=== PATIENT | female | born 1995 | race Caucasian/White ===

== ENCOUNTER 2018-01-11 05:42 | Emergency (ER) | payer OTHER ==
[2018-01-11] MEDS ORDERED: ALBUTEROL 2.5 MG/3 ML NEB SOL ONE ×2 (06:12→08:32)
[2018-01-11 07:24] LABS: Urine Blood TRACE (NEG); Urine Glucose NEGATIVE (NEG); Urine Protein NEGATIVE (NEG)
--- NOTE | 2018-01-11 08:20 | RAD REPORT ---
EXAM DESCRIPTION: Irina Winn (2 Views)01/11/2018 6:29 am CLINICAL HISTORY: Cough COMPARISON: 2016 FINDINGS: The lungs appear clear of acute infiltrate. The heart is normal size IMPRESSION: No acute abnormalities displayed
[2018-01-11] MEDS ORDERED: predniSONE 20 MG TAB ONE (08:32)
[2018-01-11] MEDS ORDERED: IPRATROPIUM BROM 0.5MG/2.5ML ONE (08:32)
--- NOTE | 2018-01-11 09:24 | EDPHYS ---
Physician Documentation [facility] Name: Erika Urbano Age: 22 yrs Sex: Female : 1995 Arrival Date: 01/11/2018 Time: 05:44 Bed 13 Private MD: ED Physician Justin Aguirre HPI: 01/11 06:30 This 22 yrs old Female presents to ER via Ambulatory with complaints of Cough pm1 and Shortness Of Breath. 06:31 The patient or guardian reports cough, with productive sputum, that is yellow. Onset: pm1 The symptoms/episode began/occurred 4 day(s) ago. Severity of symptoms: in the emergency department the symptoms are actually worse. Modifying factors: The symptoms are alleviated by inhaler, the symptoms are aggravated by nothing. Historical: - Allergies: 05:57 CEPHALOSPORINS; tl2 05:57 Clarithromycin; tl2 05:57 Lodine; tl2 05:57 Neosporin ([id number]); tl2 05:57 PENICILLINS; tl2 05:57 Sulfa (Sulfonamide Antibiotics); tl2 05:57 Clindamycin; tl2 - Home Meds: 05:57 Lamictal 150 mg Oral tab 1 tab once daily [Active]; tl2 - PMHx: 05:57 Asthma; Kidney stones; Ovarian cyst; tl2 - Immunization history:: Adult Immunizations up to date. - Social history:: Smoking status: Patient/guardian denies using tobacco. ROS: 08:17 Constitutional: Negative for fever, chills, and weight loss, Eyes: Negative for injury, pm1 pain, redness, and discharge, ENT: Negative for injury, pain, and discharge, Neck: Negative for injury, pain, and swelling, Cardiovascular: Negative for chest pain, palpitations, and edema. 08:17 Abdomen/GI: Negative for abdominal pain, nausea, vomiting, diarrhea, and constipation, Back: Negative for injury and pain, : Negative for injury, bleeding, discharge, and swelling, MS/Extremity: Negative for injury and deformity, Skin: Negative for injury, rash, and discoloration, Neuro: Negative for headache, weakness, numbness, tingling, and seizure. 08:17 Respiratory: Positive for cough, shortness of breath. Exam: 08:17 Constitutional: This is a well developed, well nourished patient who is awake, alert, pm1 and in no acute distress. Head/Face: Normocephalic, atraumatic. Chest/axilla: Normal chest wall appearance and motion. Nontender with no deformity. No lesions are appreciated. Cardiovascular: Regular rate and rhythm with a normal S1 and S2. No gallops, murmurs, or rubs. Normal PMI, no JVD. No pulse deficits. Abdomen/GI: Soft, non-tender, with normal bowel sounds. No distension or tympany. No guarding or rebound. No evidence of tenderness throughout. Back: No spinal tenderness. No costovertebral tenderness. Full range of motion. Skin: Warm, dry with normal turgor. Normal color with no rashes, no lesions, and no evidence of cellulitis. MS/ Extremity: Pulses equal, no cyanosis. Neurovascular intact. Full, normal range of motion. 08:17 Respiratory: the patient does not display signs of respiratory distress, Respirations: normal, Breath sounds: rhonchi, are heard diffusely. Vital Signs: 05:57 BP 116 / 81; Pulse 68; Resp 30; Temp 97.4(O); Pulse Ox 99% on R/A; Weight 74.84 kg; tl2 Height 5 ft. 4 in. (162.56 cm); Pain 0/10; 07:04 BP 107 / 75; Pulse 62; Resp 18; Pulse Ox 100% on R/A; tl2 07:57 BP 108 / 76; Pulse 63; Resp 18; Temp 97.5(TE); Pulse Ox 99% on R/A; ph 05:57 Body Mass Index 28.32 (74.84 kg, 162.56 cm) tl2 MDM: 06:09 Patient medically screened. pm1 08:18 Data reviewed: vital signs. Data interpreted: Pulse oximetry: on room air is 99 %. pm1 Interpretation: normal. 09:22 Counseling: I had a detailed discussion with the patient and/or guardian regarding: the pm1 historical points, exam findings, and any diagnostic results supporting the discharge/admit diagnosis, radiology results, the need for outpatient follow up, to return to the emergency department if symptoms worsen or persist or if there are any questions or concerns that arise at home. 01/11 07:19 Order name: Urine Dipstick--Ancillary (enter results); Complete Time: 07:28 eb 01/11 07:19 Order name: Urine --Ancillary (enter results); Complete Time: 07:28 eb 01/11 06:09 Order name: Chest Pa And Lat (2 Views) XRAY; Complete Time: 08:21 pm1 01/11 06:09 Order name: Urine Dipstick-Ancillary (obtain specimen); Complete Time: 07:07 pm1 01/11 06:09 Order name: Urine Test (obtain specimen); Complete Time: 07:07 pm1 Administered Medications: 06:16 Drug: Albuterol 2.5 mg Route: Inhalation; tl2 08:45 Drug: predniSONE 60 mg Route: PO; ph 08:45 Drug: Albuterol 5 mg Route: Inhalation; ph 08:45 Drug: AtroVENT Aerosol 0.5 mg Route: Inhalation; ph Disposition: 19:26 Co-signature as Attending Physician, Justin Aguirre MD. Disposition: 01/11/18 09:23 Discharged to Home. Impression: Bronchitis, not specified as acute or chronic. - Condition is Stable. - Discharge Instructions: Acute Bronchitis, How to Use an Inhaler. - Prescriptions for Prednisone 20 mg Oral Tablet - take 3 tablet by ORAL route once daily for 5 days; 15 tablet. Guaifenesin AC 10- 100 mg/5 mL Oral Liquid - take 10 milliliter by ORAL route every 4 hours As needed; 240 milliliter. - Work release form, Medication Reconciliation Form, Thank You Letter, Antibiotic Education, Prescription Opioid Use form. - Follow up: Emergency Department; When: As needed; Reason: Worsening of condition. Follow up: Private Physician; When: 2 - 3 days; Reason: Recheck today's complaints, Continuance of care, Re-evaluation by your physician. - Problem is new. - Symptoms have improved. Signatures: Dispatcher [employer] Madyson Alejandre RN RN ph Sung Flores, [employer]AK[employer] CLINICAL NURSING DIRECTOR pm1 Yuko Rivera RN RN janak2 Justin Aguirre MD MD Corrections: (The following items were deleted from the chart) 09:53 09:23 01/11/2018 09:23 Discharged to Home. Impression: Bronchitis, not specified as ph acute or chronic. Condition is Stable. Forms are Medication Reconciliation Form, Thank You Letter, Antibiotic Education, Prescription Opioid Use. Follow up: Emergency Department; When: As needed; Reason: Worsening of condition. Follow up: Private Physician; When: 2 - 3 days; Reason: Recheck today's complaints, Continuance of care, Re-evaluation by your physician. Problem is new. Symptoms have improved. pm1
--- NOTE | 2018-01-11 09:24 | ER ---
Nurse's Notes [facility] Name: Erika Urbano Age: 22 yrs Sex: Female : 1995 Arrival Date: 01/11/2018 Time: 05:44 Bed 13 Private MD: Diagnosis: Bronchitis, not specified as acute or chronic Presentation: 01/11 05:54 Presenting complaint: Patient states: I've had a cough for 4 days and shortness of tl2 breath for 2 days. I had a fever yesterday. Transition of care: patient was not received from another setting of care. Onset of symptoms was January 07, 2018. Initial Sepsis Screen: Does the patient meet any 2 criteria? No. Patient's initial sepsis screen is negative. Does the patient have a suspected source of infection? No. Patient's initial sepsis screen is negative. Care prior to arrival: None. 05:54 Method Of Arrival: Ambulatory tl2 05:54 Acuity: KAYE 3 tl2 Triage Assessment: 05:57 General: Appears in no apparent distress. uncomfortable, Behavior is calm, cooperative, tl2 appropriate for age. Pain: Denies pain. Neuro: Level of Consciousness is awake, alert, obeys commands, Oriented to person, place, time, situation. Cardiovascular: Chest pain chest pain when coughing. Respiratory: Reports shortness of breath cough that is Airway is patent Respiratory effort is even, unlabored, Respiratory pattern is tachypnea Breath sounds with rhonchi bilaterally. GI: No signs and/or symptoms were reported involving the gastrointestinal system. : No signs and/or symptoms were reported regarding the genitourinary system. Derm: Skin is pink, warm \T\ dry. Historical: - Allergies: 05:57 CEPHALOSPORINS; tl2 05:57 Clarithromycin; tl2 05:57 Lodine; tl2 05:57 Neosporin ([id number]); tl2 05:57 PENICILLINS; tl2 05:57 Sulfa (Sulfonamide Antibiotics); tl2 05:57 Clindamycin; tl2 - Home Meds: 05:57 Lamictal 150 mg Oral tab 1 tab once daily [Active]; tl2 - PMHx: 05:57 Asthma; Kidney stones; Ovarian cyst; tl2 - Immunization history:: Adult Immunizations up to date. - Social history:: Smoking status: Patient/guardian denies using tobacco. Screenin:01 Abuse screen: Denies threats or abuse. Nutritional screening: No deficits noted. tl2 Tuberculosis screening: No symptoms or risk factors identified. Fall Risk None identified. Assessment: 06:01 General: see triage assessment. tl2 06:16 Reassessment: Pt's RR decreased to 22 after resting. tl2 07:04 Reassessment: Patient appears in no apparent distress at this time. Patient and/or tl2 family updated on plan of care and expected duration. Pain level reassessed. Patient is alert, oriented x 3, equal unlabored respirations, skin warm/dry/pink. Patient states feeling better. 07:56 Reassessment: Patient appears in no apparent distress at this time. Patient and/or ph family updated on plan of care and expected duration. Pain level reassessed. Patient is alert, oriented x 3, equal unlabored respirations, skin warm/dry/pink. Pt resting quietly, awaiting CXR results, family at bedside. 09:02 Reassessment: Patient appears in no apparent distress at this time. Patient and/or ph family updated on plan of care and expected duration. Pain level reassessed. Patient is alert, oriented x 3, equal unlabored respirations, skin warm/dry/pink. Pt resting quietly, awaiting discharge, family at bedside. Vital Signs: 05:57 BP 116 / 81; Pulse 68; Resp 30; Temp 97.4(O); Pulse Ox 99% on R/A; Weight 74.84 kg; tl2 Height 5 ft. 4 in. (162.56 cm); Pain 0/10; 07:04 BP 107 / 75; Pulse 62; Resp 18; Pulse Ox 100% on R/A; tl2 07:57 BP 108 / 76; Pulse 63; Resp 18; Temp 97.5(TE); Pulse Ox 99% on R/A; ph 05:57 Body Mass Index 28.32 (74.84 kg, 162.56 cm) tl2 ED Course: 05:44 Patient arrived in ED. ds1 05:53 Yuko Rivera, NADYA is Primary Nurse. tl2 05:55 Triage completed. tl2 05:57 Arm band placed on right wrist. tl2 06:01 [facility] pm1 06:01 Justin Aguirre MD is Attending Physician. pm1 06:01 Patient has correct armband on for positive identification. Bed in low position. Call tl2 light in reach. Side rails up X 1. Adult w/ patient. 06:27 Patient moved to radiology via wheelchair. kw 06:27 X-ray completed. Patient tolerated procedure well. kw 06:27 Patient moved back from radiology. kw 06:28 Chest Pa And Lat (2 Views) XRAY In Process Unspecified. EDMS 09:05 No provider procedures requiring assistance completed. Patient did not have IV access ph during this emergency room visit. Administered Medications: 06:16 Drug: Albuterol 2.5 mg Route: Inhalation; tl2 08:45 Drug: predniSONE 60 mg Route: PO; ph 08:45 Drug: Albuterol 5 mg Route: Inhalation; ph 08:45 Drug: AtroVENT Aerosol 0.5 mg Route: Inhalation; ph Outcome: 09:23 Discharge ordered by . pm1 09:53 Patient left the ED. ph Signatures: Dispatcher [employer] EDDE Brianne Lund ds1 Carolina Coe Patricia, RN RN ph Sung Flores, [employer]HW[employer]ING [employer]ITLES pm1 Yuko Rivera, NADYA RN tl2
[2018-01-11 10:00] VITALS: BP 108/76; TEMP 97.5; O2SAT 99
== END 2018-01-11 09:53 | disposition home or self-care (01) ==
LOC: ER 05:42
DX: J20.9 Acute bronchitis, unspecified (principal)
CPT/HCPCS: 71046; 81003; 81025; 99284; J7512

== ENCOUNTER 2018-09-13 18:33 | Emergency (ER) | payer OTHER, SELFPAY ==
[2018-09-13 19:58] LABS: Absolute Monocytes 0.7 K/uL (0.1-1.3); Absolute Neutrophil 6.6 K/uL (1.8-8.0); Basophils % 0.6 % (0-1.3); Eosinophils % 0.5 % (0-4.4); Hematocrit 43.3 % (36.0-45.0); Lymphocytes % 20.9 % (15.3-44.8); MPV 7.4 fL (7.6-11.3); Monocytes % 7.9 % (3.3-12.3); RBC Red Blood Cell Count 4.74 M/uL (3.86-4.86)
[2018-09-13 20:02] LABS: Protime INR 1.01
[2018-09-13] MEDS ORDERED: ONDANSETRON 4 MG/2 ML VIAL ONE (20:14)
[2018-09-13] MEDS ORDERED: NA CHLORIDE 0.9% 1,000 ML ONE (20:14)
[2018-09-13] MEDS ORDERED: KETOROLAC 30 MG/ML INJ ONE (20:23)
--- NOTE | 2018-09-13 20:23 | RAD REPORT ---
EXAM DESCRIPTION: RAD - Chest Single View - 09/13/2018 8:14 pm CLINICAL HISTORY: CHEST PAIN Chest pain. COMPARISON: Chest Pa And Lat (2 Views) dated 01/11/2018; Chest Pa And Lat (2 Views) dated 03/22/2016 FINDINGS: Portable technique limits examination quality. The lungs are grossly clear. The heart is normal in size. No displaced fractures. IMPRESSION: No acute intrathoracic process suspected.
[2018-09-13 20:29] LABS: ALT/SGPT 21 U/L (12-78); AST/SGOT 16 U/L (15-37); Albumin 3.9 g/dL (3.4-5.0); Alkaline Phosphatase 80 U/L (45-117); BUN Blood Urea Nitrogen 11 mg/dL (7-18); Bicarbonate 27 mmol/L (21-32); Bilirubin Direct 0.1 mg/dL (0-0.2); Bilirubin Total 0.3 mg/dL (0.2-1.0); Glucose Level 89 mg/dL (74-106); Magnesium 2.1 mg/dL (1.8-2.4); NT PRO-BNP 23 pg/mL (<125); Potassium 3.9 mmol/L (3.5-5.1); Protein, Total 7.4 g/dL (6.4-8.2); Sodium Level 142 mmol/L (136-145); Troponin (Emerg Dept Use Only) < 0.02 ng/mL (0.0-0.045)
[2018-09-13 20:47] LABS: Barbiturates NEGATIVE (NEGATIVE); Benzodiazepines NEGATIVE (NEGATIVE); Cocaine NEGATIVE (NEGATIVE); METHAMPHETAM NEGATIVE (NEGATIVE); Methadone NEGATIVE (NEGATIVE); Opiates NEGATIVE (NEGATIVE); Phencyclidine NEGATIVE (NEGATIVE); THC Cannibis POSITIVE (NEGATIVE)
[2018-09-13 21:12] LABS: Urine Bacteria <20 /HPF (<20); Urine Culture Reflex Order REFLEXED; Urine RBC <5 /HPF (NONE SEEN)
[2018-09-13 21:13] LABS: Urine Blood NEGATIVE (NEG); Urine Glucose NEGATIVE (NEG); Urine Protein NEGATIVE (NEG); Urine Specific Gravity 1.015 (1.005-1.030)
--- NOTE | 2018-09-13 21:18 | ER ---
Nurse's Notes [facility] Name: Erika Urbano Age: 23 yrs Sex: Female : 1995 Arrival Date: 09/13/2018 Time: 18:35 Bed 7 Private MD: out of town, doctor Diagnosis: Chest pain Presentation: 09/13 18:38 Presenting complaint: Patient states: i have chest pain, it started an hour ago, heavy hj and squeezing pain; reports SOB; reports nausea; pain is 7/10;. Transition of care: patient was not received from another setting of care. Onset of symptoms was September 13, 2018. Risk Assessment: Do you want to hurt yourself or someone else? Patient reports no desire to harm self or others. Initial Sepsis Screen: Does the patient meet any 2 criteria? No. Patient's initial sepsis screen is negative. Does the patient have a suspected source of infection? No. Patient's initial sepsis screen is negative. Care prior to arrival: None. 18:38 Method Of Arrival: Ambulatory 18:38 Acuity: KAYE 3 hj Triage Assessment: 18:41 General: Appears in no apparent distress. uncomfortable, Behavior is calm, cooperative, hj appropriate for age. Pain: Complains of pain in chest Pain currently is 7 out of 10 on a pain scale. Cardiovascular: Capillary refill < 3 seconds Patient's skin is warm and dry. SITE AUDITOR: 18:41 LMP N/A - control method Historical: - Allergies: 18:41 CEPHALOSPORINS; hj 18:41 Clarithromycin; hj 18:41 Clindamycin; hj 18:41 Lodine; hj 18:41 Neosporin ([id number]); hj 18:41 PENICILLINS; hj 18:41 Sulfa (Sulfonamide Antibiotics); hj - Home Meds: 18:41 None [Active]; hj - PMHx: 18:41 Asthma; Kidney stones; Ovarian cyst; hj - PSHx: 18:41 Carpal Tunnel Repair; Knee surgery; hj - Immunization history:: Adult Immunizations up to date. - Social history:: Smoking status: Patient/guardian denies using tobacco, Patient/guardian denies using alcohol. - Ebola Screening: : Patient negative for fever greater than or equal to 101.5 degrees Fahrenheit, and additional compatible Ebola Virus Disease symptoms Patient denies exposure to infectious person Patient denies travel to an Ebola-affected area in the 21 days before illness onset. Screenin:42 Abuse screen: Denies threats or abuse. Denies injuries from another. Nutritional hj screening: No deficits noted. Tuberculosis screening: No symptoms or risk factors identified. Fall Risk None identified. Assessment: 18:42 Pain: Pain does not radiate. Pain began 1 hour ago. 18:45 General: Appears in no apparent distress. Behavior is calm, cooperative, appropriate tl1 for age. Pain: Complains of pain in chest Pain currently is 6 out of 10 on a pain scale. Quality of pain is described as squeezing. Neuro: Level of Consciousness is awake, alert, obeys commands, Oriented to person, place, time, situation. Cardiovascular: Reports chest pain, Capillary refill < 3 seconds JVD is absent Patient's skin is warm and dry. Rhythm is sinus rhythm. Respiratory: Reports cough that is since approx 2 months Airway is patent Trachea midline Respiratory effort is even, unlabored, Breath sounds are clear bilaterally. GI: Abdomen is non-distended, Bowel sounds present X 4 quads. Abd is soft and non tender X 4 quads. Reports nausea. : No signs and/or symptoms were reported regarding the genitourinary system. EENT: No signs and/or symptoms were reported regarding the EENT system. 21:37 Reassessment: Patient and/or family updated on plan of care and expected duration. Pain tl1 level reassessed. Patient is alert, oriented x 3, equal unlabored respirations, skin warm/dry/pink. Patient states feeling better. Vital Signs: 18:41 BP 121 / 80; Pulse 100; Resp 18; Temp 98.4(O); Pulse Ox 99% on R/A; Weight 74.84 kg; Height 5 ft. 4 in. (162.56 cm); Pain 7/10; 19:46 BP 112 / 81; Pulse 72; Resp 14; Pulse Ox 99% on R/A; mt 20:20 BP 103 / 64; Pulse 65; Resp 17; Pulse Ox 98% ; tl1 20:51 BP 94 / 62; Pulse 59; Resp 20; Pulse Ox 97% on R/A; Pain 0/10; tl1 18:41 Body Mass Index 28.32 (74.84 kg, 162.56 cm) ED Course: 18:35 Patient arrived in ED. mr 18:37 out of town, doctor is Private Physician. mr 18:40 Triage completed. hj 18:42 Arm band placed on right wrist. hj 18:42 Patient has correct armband on for positive identification. Placed in gown. Bed in low hj position. Call light in reach. Side rails up X 1. Adult w/ patient. environmental monitoring specialist on. Pulse ox on. NIBP on. 18:42 Patient maintains SpO2 saturation greater than 95% on room air. hj 19:41 Casey Reynolds MD is Attending Physician. pkl 19:50 Inserted saline lock: 20 gauge in right antecubital area, using aseptic technique. mt Blood collected. by NADYA Garza. 20:09 Kayla Beltran RN is Primary Nurse. tl1 20:13 XRAY Chest (1 view) In Process Unspecified. EDMS 21:37 No provider procedures requiring assistance completed. IV discontinued, intact, tl1 bleeding controlled, No redness/swelling at site. Pressure dressing applied. Administered Medications: 20:10 Drug: NS 0.9% 1000 ml Route: IV; Rate: 100 ml/hr; Site: right antecubital; tl1 21:38 Follow up: IV Status: Completed infusion tl1 20:10 Drug: Zofran 4 mg Route: IVP; Infused Over: 2 mins; Site: right antecubital; tl1 21:38 Follow up: Response: No adverse reaction; Marked relief of symptoms; Nausea is decreasedtl1 20:19 Drug: TORadol 30 mg Route: IVP; Infused Over: 2 mins; Site: right antecubital; tl1 21:38 Follow up: Response: No adverse reaction; Marked relief of symptoms; Pain is decreased tl1 Outcome: 21:18 Discharge ordered by . pkl 21:37 Discharged to home ambulatory, with family. tl1 21:37 Condition: good 21:37 Discharge instructions given to patient, family, Instructed on discharge instructions, follow up and referral plans. medication usage, Demonstrated understanding of instructions, follow-up care, medications, Prescriptions given X 2. 21:39 Patient left the ED. tl1 Signatures: Dispatcher [employer] EDPR Casey Reynolds MD MD pkl Rivera, Mary mr Kayla Beltran RN RN tl1 Adán Smith RN RN hj Thompson, Moriah mt Corrections: (The following items were deleted from the chart) 18:44 18:41 74.84 kg; Height 5 ft. 4 in.; BMI: 28.3; Pain 03/19; serjio bassett
--- NOTE | 2018-09-13 21:19 | EDPHYS ---
Physician Documentation [facility] Name: Erika Urbano Age: 23 yrs Sex: Female : 1995 Arrival Date: 09/13/2018 Time: 18:35 Bed 7 Private MD: out of town, doctor ED Physician Casey Reynolds HPI: 09/13 20:00 This 23 yrs old Female presents to ER via Ambulatory with complaints of Chest pkl Pain. 20:00 The patient or guardian reports chest pain that is located primarily in the substernal pkl area. The pain radiates to the left arm. Associated signs and symptoms: Pertinent positives: nausea. The chest pain is described as squeezing. The patient has not experienced similar symptoms in the past. FRONT DESK LEAD: 18:41 LMP N/A - control method hj Historical: - Allergies: 18:41 CEPHALOSPORINS; hj 18:41 Clarithromycin; hj 18:41 Clindamycin; hj 18:41 Lodine; hj 18:41 Neosporin ([id number]); hj 18:41 PENICILLINS; hj 18:41 Sulfa (Sulfonamide Antibiotics); hj - Home Meds: 18:41 None [Active]; hj - PMHx: 18:41 Asthma; Kidney stones; Ovarian cyst; hj - PSHx: 18:41 Carpal Tunnel Repair; Knee surgery; hj - Immunization history:: Adult Immunizations up to date. - Social history:: Smoking status: Patient/guardian denies using tobacco, Patient/guardian denies using alcohol. - Ebola Screening: : Patient negative for fever greater than or equal to 101.5 degrees Fahrenheit, and additional compatible Ebola Virus Disease symptoms Patient denies exposure to infectious person Patient denies travel to an Ebola-affected area in the 21 days before illness onset. ROS: 20:00 Eyes: Negative for injury, pain, redness, and discharge, ENT: Negative for injury, pkl pain, and discharge, Neck: Negative for injury, pain, and swelling. 20:00 Cardiovascular: Positive for chest pain. 20:00 Respiratory: Positive for shortness of breath, Negative for cough. 20:00 Abdomen/GI: Positive for nausea. 20:00 Back: Negative for acute changes. 20:00 : Negative for urinary symptoms. 20:00 MS/extremity: Negative for acute changes. 20:00 Skin: Negative for rash. 20:00 Neuro: Negative for altered mental status. Exam: 20:00 Head/Face: Normocephalic, atraumatic. Eyes: Pupils equal round and reactive to light, pkl extra-ocular motions intact. Lids and lashes normal. Conjunctiva and sclera are non-icteric and not injected. Cornea within normal limits. Periorbital areas with no swelling, redness, or edema. ENT: Nares patent. No nasal discharge, no septal abnormalities noted. Tympanic membranes are normal and external auditory canals are clear. Oropharynx with no redness, swelling, or masses, exudates, or evidence of obstruction, uvula midline. Mucous membranes moist. Neck: Trachea midline, no thyromegaly or masses palpated, and no cervical lymphadenopathy. Supple, full range of motion without nuchal rigidity, or vertebral point tenderness. No Meningismus. Chest/axilla: Normal chest wall appearance and motion. Nontender with no deformity. No lesions are appreciated. Cardiovascular: Regular rate and rhythm with a normal S1 and S2. No gallops, murmurs, or rubs. Normal PMI, no JVD. No pulse deficits. Respiratory: Lungs have equal breath sounds bilaterally, clear to auscultation and percussion. No rales, rhonchi or wheezes noted. No increased work of breathing, no retractions or nasal flaring. Abdomen/GI: Soft, non-tender, with normal bowel sounds. No distension or tympany. No guarding or rebound. No evidence of tenderness throughout. Back: No spinal tenderness. No costovertebral tenderness. Full range of motion. Skin: Warm, dry with normal turgor. Normal color with no rashes, no lesions, and no evidence of cellulitis. MS/ Extremity: Pulses equal, no cyanosis. Neurovascular intact. Full, normal range of motion. Neuro: Awake and alert, GCS 15, oriented to person, place, time, and situation. Cranial nerves II-XII grossly intact. Motor strength 5/5 in all extremities. Sensory grossly intact. Cerebellar exam normal. Normal gait. Vital Signs: 18:41 BP 121 / 80; Pulse 100; Resp 18; Temp 98.4(O); Pulse Ox 99% on R/A; Weight 74.84 kg; hj Height 5 ft. 4 in. (162.56 cm); Pain 7/10; 19:46 BP 112 / 81; Pulse 72; Resp 14; Pulse Ox 99% on R/A; mt 20:20 BP 103 / 64; Pulse 65; Resp 17; Pulse Ox 98% ; tl1 20:51 BP 94 / 62; Pulse 59; Resp 20; Pulse Ox 97% on R/A; Pain 0/10; tl1 18:41 Body Mass Index 28.32 (74.84 kg, 162.56 cm) hj MDM: 19:41 Patient medically screened. pkl 21:17 Data reviewed: vital signs, nurses notes, lab test result(s), EKG, radiologic studies, pkl plain films. 09/13 19:47 Order name: Basic Metabolic Panel; Complete Time: 21:12 mi 09/13 19:47 Order name: CBC with Diff; Complete Time: 21:12 mi 09/13 19:47 Order name: LFT's; Complete Time: 21:12 mi 09/13 19:47 Order name: Magnesium; Complete Time: 21:12 mi 09/13 19:47 Order name: NT PRO-BNP; Complete Time: 21:12 mi 09/13 19:47 Order name: PT-INR; Complete Time: 21:12 mi 09/13 19:47 Order name: Troponin (emerg Dept Use Only); Complete Time: 21:12 mi 09/13 19:47 Order name: XRAY Chest (1 view); Complete Time: 21:12 mi 09/13 19:59 Order name: D-Dimer; Complete Time: 21:12 [facility] 09/13 19:59 Order name: UDS; Complete Time: 21:12 [facility] 09/13 20:01 Order name: Urine Dipstick--Ancillary (enter results); Complete Time: 21:16 1 09/13 20:01 Order name: Urine --Ancillary (enter results); Complete Time: 21:16 em 09/13 20:18 Order name: Urine Microscopic Only; Complete Time: 21:16 [facility] 09/13 21:13 Order name: Urine Culture [facility] 09/13 18:49 Order name: EKG; Complete Time: 18:49 09/13 19:47 Order name: Cardiac monitoring; Complete Time: 19:48 mi 09/13 19:47 Order name: EKG - Nurse/Tech; Complete Time: 19:48 mi 09/13 19:47 Order name: IV Saline Lock; Complete Time: 19:48 mt 09/13 19:47 Order name: Labs collected and sent; Complete Time: 19:48 mt 09/13 19:47 Order name: O2 Per Protocol; Complete Time: 19:48 mt 09/13 19:47 Order name: O2 Sat Monitoring; Complete Time: 19:48 mt 09/13 19:50 Order name: Urine Dipstick-Ancillary (obtain specimen); Complete Time: 19:58 mt 09/13 19:50 Order name: Urine Test (obtain specimen); Complete Time: 19:58 mt Administered Medications: 20:10 Drug: NS 0.9% 1000 ml Route: IV; Rate: 100 ml/hr; Site: right antecubital; tl1 21:38 Follow up: IV Status: Completed infusion tl1 20:10 Drug: Zofran 4 mg Route: IVP; Infused Over: 2 mins; Site: right antecubital; tl1 21:38 Follow up: Response: No adverse reaction; Marked relief of symptoms; Nausea is decreasedtl1 20:19 Drug: TORadol 30 mg Route: IVP; Infused Over: 2 mins; Site: right antecubital; tl1 21:38 Follow up: Response: No adverse reaction; Marked relief of symptoms; Pain is decreased tl1 Disposition: 09/13/18 21:18 Discharged to Home. Impression: Chest pain. - Condition is Stable. - Prescriptions for Ultram 50 mg Oral Tablet - take 1 tablet by ORAL route every 8 hours As needed; 20 tablet. Zofran 4 mg Oral Tablet - take 1 tablet by ORAL route every 12 hours As needed; 6 tablet. - Medication Reconciliation Form, Thank You Letter, Antibiotic Education, Prescription Opioid Use form. - Follow up: Private Physician; When: 2 - 3 days; Reason: Re-evaluation by your physician. - Problem is new. - Symptoms have improved. Signatures: Dispatcher [employer] EDCasey Flores MD MD pkl Lasagna, Tonya RN RN tl1 Adán Smith RN RN Loren Rosales mi Corrections: (The following items were deleted from the chart) 21:39 21:18 09/13/2018 21:18 Discharged to Home. Impression: Chest pain. Condition is Stable. tl1 Forms are Medication Reconciliation Form, Thank You Letter, Antibiotic Education, Prescription Opioid Use. Follow up: Private Physician; When: 2 - 3 days; Reason: Re-evaluation by your physician. Problem is new. Symptoms have improved. pkl
[2018-09-13 21:44] VITALS: TEMP 98.4
[2018-09-13 21:47] VITALS: BP 94/62; O2SAT 97
--- NOTE | 2018-09-14 13:56 | EKG ---
Test Date: 2018-09-13 Test Time: 18:45:02 [employer] Equipment Mechanic: JOVITA MEASUREMENT RESULTS: Intervals: Rate: 76 SC: 134 QRSD: 68 QT: 346 QTc: 389 Bryant: P: 74 SC: 134 QRS: 77 T: 76 INTERPRETIVE STATEMENTS: Normal sinus rhythm Normal ECG Compared to ECG 03/22/2016 19:01:17 No significant changes Electronically Signed On 09-14-18 13:53:54 [employer]IL[employer] OPERATOR by Tom Johnson
== END 2018-09-13 21:39 | disposition home or self-care (01) ==
LOC: ER 18:33
DX: R07.9 Chest pain, unspecified (principal); Z88.0 Allergy status to penicillin; Z88.1 Allergy status to other antibiotic agents; Z88.2 Allergy status to sulfonamides; Z88.3 Allergy status to other anti-infective agents; Z88.8 Allergy status to other drugs, medicaments and biological substances
CPT/HCPCS: 36415; 71045; 80048; 80076; 80307; 81003; 81015; 81025; 83735; 83880; 84484; 85025; 85379; 85610; 87086; 87088; 93005; 96361; 96374; 96375; 99285; J2405; J7030